=== PATIENT | male | born 1950 | race Caucasian/White ===

== ENCOUNTER 2021-03-01 13:37 | Emergency (ER) | payer BC, MEDICARE, OTHER ==
[2021-03-01] MEDS ORDERED: Diphtheria,Pertussis(Acell),Tetanus Vaccine 0.5 ML SDV IM ONE (13:57)
[2021-03-01] MEDS ORDERED: Diphtheria/Tetanus Toxoids,Adult (Td) 0.5 ML SDV IM ONE (14:03)
[2021-03-01] MEDS ORDERED: Lidocaine 1% 10 ML MDV INJECT ONE (14:03)
--- NOTE | 2021-03-01 15:18 | EDM.PDOC ---
ED HPI GENERAL MEDICAL PROBLEM - General Chief Complaint: Laceration Stated Complaint: LACERATION MIDDLE FINGER LEFT HAND Time Seen by Provider: 03/01/21 13:52 Source of Information: Reports: Patient, RN Notes Reviewed History Limitations: Reports: No Limitations - History of Present Illness INITIAL COMMENTS - FREE TEXT/NARRATIVE: This patient presents to the emergency department for evaluation of a finger laceration. He was using a plumbing auger when his left third digit became entangled and he has a partial amputation of his distal finger. He denies other injuries or concerns. Left Finger-Little Pain Score (Numeric/FACES): 6 - Related Data Allergies Allergy/AdvReac Type Severity Reaction Status Date / Time No Known Allergies Allergy Verified 03/01/21 13:52 Home Meds: Home Meds atenoloL [Atenolol] 25 mg PO DAILY 03/01/21 [History] atorvaSTATin [Lipitor] 40 mg PO BEDTIME 03/01/21 [History] lisinopriL [Lisinopril] 20 mg PO DAILY 03/01/21 [History] Past Medical History - Past Health History Medical/Surgical History: Denies Medical/Surgical History HEENT History: Reports: Other (See Below) Cardiovascular History: Reports: High Cholesterol, Hypertension - Past Surgical History Other HEENT Surgeries/Procedures: dental work Social & Family History - Alcohol Use Number of Drinks Per Day: 1 - Recreational Drug Use Recreational Drug Use: No ED ROS GENERAL - Review of Systems Review Of Systems: Comprehensive ROS is negative, except as noted in HPI. ED EXAM, SKIN/RASH Exam: See Below Exam Limited By: No Limitations General Appearance: Alert, WD/WN, No Apparent Distress (Quiet quiet) Ears: Normal External Exam Nose: Normal Inspection (Working) Head: Atraumatic, Normocephalic Neck: Normal Inspection, Supple, Full Range of Motion Respiratory/Chest: No Respiratory Distress, No Accessory Muscle Use (Accomplice) Back Exam: Normal Inspection Extremities: Normal Inspection Neurological: Alert, Oriented Skin: Warm, Dry, Intact Location, Skin: Upper Extremity, Left (Partial amputation of the distal third digit from nail bed around approximately three quarters of the digit.) ED SKIN PROCEDURES - Laceration/Wound Repair Left Distal Digit - 3rd (Middle) Appearance: Muscle, Mildly Contaminated Distal NVT: Neuro & Vascular Intact, No Tendon Injury Anesthetic Type: Digital Local Anesthesia - Lidocaine (Xylocaine): 1% Plain Local Anesthesia - Bupivicaine (Marcaine): 0.5% Plain Local Anesthetic Volume: Other (1% lidocaine plain mixed in a one-to-one ratio with 0.5% bupivacaine. Digital block performed using approximately 10 mils.) Skin Prep: Chlorhexidine (Hibiciens) Saline Irrigation (cc's): 250 Exploration/Debridement/Repair: Wound Explored, In a Bloodless Field (Total tourniquet time approximately 12 minutes), Explored to Base, No Foreign Material Found Closed with: Sutures Lac/Wound length In cm: 3 Suture Size: 5-0 # of Sutures: 9 Suture Type: Simple, Other Drain Placement: No Sterile Dressing Applied: Other (Wound covered with bacitracin and then Vaseline gauze. A bulky dressing was applied with a metal splint. Coban was a proximal applied over the dressing for additional compression.) Tetanus Status Addressed: Yes Complications: No Progress/Comments: Patient will return to outpatient center for a dressing change on Feb. Course - Orders/Labs/Meds Orders: Active Orders 24 hr Category Date Time Status Fingers Third Digit Lt F2 [CR] Stat Exams 03/01/21 14:03 Taken Meds: Medications Discontinued Medications Generic Name Dose Route Start Last Admin Trade Name Freq PRN Reason Stop Dose Admin Diphtheria/Tetanus/Acell Pertussis 0.5 ml 03/01/21 13:57 03/01/21 14:25 Diphtheria,Pertussis(Acell),Tetanus Vaccine 0.5 Ml Sdv IM 03/01/21 13:58 Not Given .ONCE ONE Tetanus/Diphtheria Toxoids 0.5 ml 03/01/21 14:03 03/01/21 14:06 Diphtheria/Tetanus Toxoids,Adult (Td) 0.5 Ml Sdv IM 03/01/21 14:04 0.5 ml .ONCE ONE Administration - Re-Assessments/Exams Free Text/Narrative Re-Assessment/Exam: This patient presents to the emergency department for evaluation of finger laceration. He does have a partial amputation of his third digit with a tuft fracture. The wound was closed and the range of motion following repair repair was excellent. He does have the ability to flex and extend against pressure. He will be seen back on March 11 for a wound check and dressing change. There is no evidence of a muscular or tendon injury with this laceration. There are no signs of foreign body. The patient is on an antibiotic, Augmentin, for an unrelated issue and has just started the course. He will remain on that for the next 7 days. He was instructed to contact the emergency department in the next few days should he have any questions, concerns, notice a fever, increased pain, other issues. Patient was stable at the time of discharge. 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 Continue taking antibiotics. keep dressing dry and intact. May take tyl and ibbuprofen as needed for pain Sepsis Event Note (ED) - Evaluation Sepsis Screening Result: No Definite Risk - My Orders Last 24 Hours: My Active Orders 03/01/21 14:03 Fingers Third Digit Lt F2 [CR] Stat - Assessment/Plan Last 24 Hours: My Active Orders 03/01/21 14:03 Fingers Third Digit Lt F2 [CR] Stat
--- NOTE | 2021-03-01 17:15 | CR ---
CLINICAL DATA: Trauma. LEFT THIRD DIGIT, 01 MARCH 2021: There is a comminuted intraarticular fracture through the base of the distal phalanx with adjacent soft tissue deformity. No other acute abnormalities. Job: [id number] [employer]
== END 2021-03-01 15:07 | disposition home or self-care (01) ==
LOC: LB.ED 13:37
DX: S68.123A Partial traumatic metacarpophalangeal amputation of left middle finger, initial encounter (principal); S61.213A Laceration without foreign body of left middle finger without damage to nail, initial encounter; E78.00 Pure hypercholesterolemia, unspecified; I10 Essential (primary) hypertension; Z79.899 Other long term (current) drug therapy; Z23 Encounter for immunization; W26.8XXA Contact with other sharp object(s), not elsewhere classified, initial encounter
CPT/HCPCS: 12002; 73140-F2; 90471; 90714; 99283-25